=== PATIENT | male | born 1975 | race African-American/Black ===

== ENCOUNTER 2016-07-17 05:14 | Emergency (ER) | payer MEDICAID ==
[~2016-07-17] VITALS: Ht 165.1 cm; Wt 95.0 kg
[~2016-07-17 05:14] MED LIST: ARIP5TAB8 PO; DIVAL250 PO; TRAZ-129 PO
[2016-07-17 05:35] VITALS: BP 131/79
== END 2016-07-17 07:12 | disposition home or self-care (01) ==
LOC: ER 05:14
DX: Z11.1 Encounter for screening for respiratory tuberculosis (principal); F17.210 Nicotine dependence, cigarettes, uncomplicated; Z79.899 Other long term (current) drug therapy
CPT/HCPCS: 99281